=== PATIENT | male | born 1975 | race Caucasian/White ===

== ENCOUNTER 2016-12-28 08:29 | Emergency (ER) | payer OTHER ==
[~2016-12-28] VITALS: Ht 165.1 cm; Wt 79.5 kg
[2016-12-28 08:32] VITALS: Ht 165.1 cm; Wt 79.5 kg
[2016-12-28] MEDS ORDERED: FAMOTIDINE 20 MG TAB PO STA (09:04)
[2016-12-28] MEDS ORDERED: LIDOCAINE/MYLANTA 40 ML BTL PO STA (09:04)
[2016-12-28 09:25] LABS: URINE BLOOD (Dip) POC Trace-intact (NEGATIVE)
--- NOTE | 2016-12-28 09:31 | RADRPT ---
PROCEDURE: XR Chest. CLINICAL INDICATION: Shortness of breath. TECHNIQUE: A single portable view of the chest was obtained. COMPARISON: None FINDINGS: The cardiomediastinal silhouette is within normal limits. The lungs and pleural spaces are clear. The soft tissues and osseous structures are unremarkable. IMPRESSION: No acute cardiopulmonary disease. RPTAT: HPNM Physician Tor Date Time Electronically viewed and signed by David Yang Physician on 12/28/2016 09:31 /
[2016-12-28 09:46] LABS: ADD SCAN DIFF NO
[2016-12-28 09:49] LABS: BASOPHILS % 0.3 % (0.0-2.0); EOSINOPHILS # 0.1 10^3/ul (0.0-0.5); EOSINOPHILS % 1.6 % (0.0-7.0); HEMATOCRIT 44.5 % (42.0-52.0); HEMOGLOBIN 14.7 g/dl (14.0-18.0); MEAN CORPUSCULAR HEMOGLOBIN 29.9 pg (29.0-33.0); MEAN CORPUSCULAR VOLUME 90.4 fl (82.0-101.0); MEAN PLATELET VOLUME 9.2 fl (7.4-10.4); MONOCYTE # 0.4 10^3/ul (0.3-0.9); MONOCYTES % 11.9 % (0.0-11.0); NEUTROPHIL # 2.2 10^3/ul (1.6-7.5); NEUTROPHILS % 60.2 % (39.0-77.0); PLATELET COUNT 206 10^3/UL (140-415); RED BLOOD COUNT 4.92 10^6/ul (4.70-6.10); RED CELL DISTRIBUTION WIDTH 12.8 % (11.5-14.5); WHITE BLOOD COUNT 3.7 10^3/ul (4.8-10.8)
[2016-12-28 09:56] LABS: POTASSIUM 4.1 mmol/L (3.5-5.1)
[2016-12-28 09:58] LABS: CREATININE 0.99 mg/dl (0.61-1.24)
[2016-12-28 09:59] LABS: ALBUMIN/GLOBULIN RATIO 1.31; BILIRUBIN,INDIRECT 0.6 mg/dl (0-1.1); BILIRUBIN,TOTAL 0.6 mg/dl (0.2-1.3); CALCIUM 9.6 mg/dl (8.4-10.2); TOTAL PROTEIN 8.8 g/dl (6.1-8.1)
--- NOTE | 2016-12-28 10:00 | ERD ---
ER Documentation Chief Complaint Date/Time DATE: 12/28/16 TIME: 09:55 Chief Complaint constant upper quadrant pain x4 days, aggravates when lying down,denies n/v HPI This is a 41-year-old male presenting to emergency department for abdominal pain 4 days. Patient states his pain is constant, pressure to periumbilical region. Patient's pain is aggravated while lying down. No nausea, vomiting or diarrhea. Last bowel movement was yesterday. Denies constipation. No chest pain, palpitations, shortness of breath or difficulty breathing. No fevers or chills. Patient did not take any medications at home. Patient recently changed his diet to liquid only diet "detox" for the past week. ROS All systems reviewed and are negative except as per history of present illness. Medications Home Meds Active Scripts Famotidine* (Pepcid*) 20 Mg Tablet, 20 MG PO BID for 4 Days, TAB Prov:ALONZO MOORE NP 12/28/16 Polyethylene Glycol* (Miralax*) 17 Gm Powd.pack, 17 GM PO DAILY, #7 Prov:ALONZO MOORE NP 12/28/16 Docusate Sodium* (Colace*) 100 Mg Capsule, 100 MG PO DAILY, #10 CAP Prov:ALONZO MOORE NP 12/28/16 PMhx/Soc Medical and Surgical Hx: pt denies Medical Hx History of Surgery: Yes (circumcision) Anesthesia Reaction: No Hx Neurological Disorder: No Hx Respiratory Disorders: No Hx Cardiac Disorders: No Hx Psychiatric Problems: No Hx Miscellaneous Medical Probl: No Hx Alcohol Use: No Hx Substance Use: No Hx Tobacco Use: No Smoking Status: Never smoker Physical Exam Vitals Vital Signs Date Time Temp Pulse Resp B/P Pulse Ox O2 Delivery O2 Flow Rate FiO2 12/28/16 12:43 98.4 74 19 119/64 100 Room Air 12/28/16 08:32 98.2 73 19 128/85 95 Physical Exam Const: No acute distress, alert, oriented to person place and time. Head: Atraumatic Eyes: Normal Conjunctiva ENT: Normal External Ears, Nose and Mouth. Neck: Full range of motion..~ No meningismus. Resp: Clear to auscultation bilaterally. No wheezing, rhonchi or crackles. Cardio: Regular rate and rhythm, no murmurs Abd: Soft, no suprapubic tenderness. , non distended. Normal bowel sounds, Skin: No petechiae or rashes Back: No midline or flank tenderness, No CVA tenderness. Ext: No cyanosis, or edema Neur: Awake and alert Psych: Normal Mood and Affect Result Diagram: 12/28/1691612/28/1617 Results 24 hrs Laboratory Tests Test 12/28/16 09:17 12/28/16 09:25 White Blood Count 3.710^3/ul Red Blood Count 4.9210^6/ul Hemoglobin 14.7g/dl Hematocrit 44.5% Mean Corpuscular Volume 90.4fl Mean Corpuscular Hemoglobin 29.9pg Mean Corpuscular Hemoglobin Concent 33.0g/dl Red Cell Distribution Width 12.8% Platelet Count 96192^3/UL Mean Platelet Volume 9.2fl Neutrophils % 60.2% Lymphocytes % 26.0% Monocytes % 11.9% Eosinophils % 1.6% Basophils % 0.3% Nucleated Red Blood Cells % 0.0/100WBC Neutrophils # 2.210^3/ul Lymphocytes # 1.010^3/ul Monocytes # 0.410^3/ul Eosinophils # 0.110^3/ul Basophils # 0.010^3/ul Nucleated Red Blood Cells # 0.010^3/ul Sodium Level 143mmol/L Potassium Level 4.1mmol/L Chloride Level 101mmol/L Carbon Dioxide Level 27mmol/L Anion Gap 19 Blood Urea Nitrogen 15mg/dl Creatinine 0.99mg/dl Glucose Level 98mg/dl Calcium Level 9.6mg/dl Total Bilirubin 0.6mg/dl Direct Bilirubin 0.00mg/dl Indirect Bilirubin 0.6mg/dl Aspartate Amino Transf (AST/SGOT) 47IU/L Alanine Aminotransferase (ALT/SGPT) 64IU/L Alkaline Phosphatase 86IU/L Total Protein 8.8g/dl Albumin 5.0g/dl Globulin 3.80g/dl Albumin/Globulin Ratio 1.31 Lipase 79U/L Bedside Urine pH (LAB) 5.5 Bedside Urine Protein (LAB) Negative Bedside Urine Glucose (UA) Negative Bedside Urine Ketones (LAB) Negative Bedside Urine Blood Trace-intact Bedside Urine Nitrite (LAB) Negative Bedside Urine Leukocyte Esterase (L Negative Current Medications Medications (Trade) Dose Ordered Sig/Beba Route PRN Reason Start Time Stop Time Status Last Admin Dose Admin Famotidine (Pepcid) 20 mg ONCE STAT PO 12/28/16 09:04 12/28/16 09:07 DC 12/28/16 09:28 Miscellaneous Medication (Gi Cocktail (2)) 40 ml ONCE STAT PO 12/28/16 09:04 12/28/16 09:07 DC 12/28/16 09:28 Procedures/MDM ED COURSE: The patient was stable throughout ED course. I kept the patient and/or family informed of laboratory and diagnostic imaging results throughout the ED course. Laboratory CBC no significant anemia or infection CMP no significant electrolyte imbalance. AST slightly elevated at 47. Lipase 79 Urine dip trace blood Imaging Chest x-ray Patient: MERON RIVERA : 1975 Age: 41 Sex: M MR #: [id number] DOS: 12/28/16903 Ordering MD: ALONZO MOORE NP Location: [facility] Room/Bed: PROCEDURE: XR Chest. CLINICAL INDICATION: Shortness of breath. TECHNIQUE: A single portable view of the chest was obtained. COMPARISON: None FINDINGS: The cardiomediastinal silhouette is within normal limits. The lungs and pleural spaces are clear. The soft tissues and osseous structures are unremarkable. IMPRESSION: No acute cardiopulmonary disease. Gallbladder ultrasound Patient: MERON RIVERA : 1975 Age: 41 Sex: M MR #: [id number] DOS: 12/28/16903 Ordering MD: ALONZO MOORE NP Location: [facility] Room/Bed: PROCEDURE: Right upper quadrant abdominal ultrasound. CLINICAL INDICATION: Abdominal pain TECHNIQUE: Jorgensen scale and color doppler ultrasound images of the right upper quadrant. COMPARISON: None FINDINGS: Pancreas: Partially visualized pancreas appears within normal limits. Liver: Morphology: Normal in size and contour. Echogenicity: Normal. Focal lesions: None. Main portal vein: Patent with hepatopetal flow. Biliary System: Normal appearing gallbladder wall. No gallstones seen. No intrahepatic biliary dilatation. Common bile duct measures 4.1 mm in maximal dimension. Kidneys: Right 9.8 cm in length. Right renal cortical thickness is preserved. Normal echogenicity. No hydronephrosis. No renal calculi. No focal lesions. No free fluid identified. IMPRESSION: Normal gallbladder without gallstones. Normal examination. Patient: MERON RIVERA : 1975 Age: 41 Sex: M MR #: [id number] [facility] #: [id number] DOS: 12/28/16 1041 Ordering MD: ALONZO MOORE NP [facility] Room/Bed: AMENDMENT: 12/28/2016 12:16:02 PM Cody Alvarenga M.d PROCEDURE: CT abdomen and pelvis without contrast. CLINICAL INDICATION: Abdominal pain. TECHNIQUE: CT scan of the abdomen and pelvis without contrast was performed on a multi-slice CT scanner . Sagittal and coronal reformatted images were obtained from the axial source images. DLP 744.3 mGycm. CTDIvol 13.2 mGy COMPARISON: None FINDINGS: Trace scarring is seen in the lung bases. There is a 5 ml right lower lobe pulmonary nodule on series 3, image 38. There is a 3 mm nodule in the left lower lobe on image 5. Coronary artery calcifications are seen in the heart. There is limited evaluation of the solid viscera from the lack of IV contrast. The kidneys are symmetric bilaterally with no evidence of renal or ureteral calculi. There is no hydronephrosis or perinephric stranding. There is normal density of the liver with no gross focal lesion or biliary ductal dilatation. The gallbladder is unremarkable without inflammation. The spleen is unremarkable without mass. The adrenal glands are within normal limits without mass. The pancreas is unremarkable without focal lesion or surrounding inflammatory changes. There is no bowel obstruction or focal bowel inflammation. The appendix is unremarkable. There is a moderately fecal filled colon. There is no free air or free fluid. There are no enlarged lymph nodes. There is aortic atherosclerosis without aneurysmal dilatation. There is no acute osseous abnormality. The prostate is grossly unremarkable. There is a small fat containing right inguinal hernia. IMPRESSION: No evidence of renal or ureteral calculi or hydronephrosis. No evidence of bowel obstruction or inflammation. There is a fecal filled colon. Atherosclerotic disease is present. Small bilateral pulmonary nodules are seen which can be further assessed with dedicated CT of the thorax on a non emergent basis. EKG: As interpreted by myself and Dr. Jiménez Rate/Rhythm: Normal sinus rhythm with heart rate 76 bpm QRS, ST, T-waves: No changes consistent w/ acute ischemia Impression: No evidence of ischemia or arrhythmia MDM: 41-year-old male presents emergency department for constant, pressure to periumbilical region. Patient rates pain 6-7/10 while lying down. Patient states lying down aggravates his pain. Patient given Pepcid and GI cocktail while in the ED. Chest x-ray reviewed by radiologist as unremarkable. Gallbladder ultrasound reviewed by radiologist as normal gallbladder without gallstones. Normal examination. CT abdomen and pelvis reviewed by radiologist as No evidence of renal or ureteral calculi or hydronephrosis. No evidence of bowel obstruction or inflammation. There is a fecal filled colon. Atherosclerotic disease is present. Small bilateral pulmonary nodules are seen which can be further assessed with dedicated CT of the thorax on a non emergent basis. Labs are overall unremarkable. Urine dip is negative for infection with trace blood. Patient given Pepcid with GI cocktail. According to radiologist, there is a fecal filled colon on CT abdomen and pelvis examination. Patient states he had a last bowel movement yesterday morning however changed his diet to liquid only for the past week. Vital signs remained stable. EKG reviewed by myself and Dr. Jiménez as NSR with HR 76bpm. Upon reassessment of patient, patient appears well and smiling during reassessment. Low suspicion for appendicitis, diverticulitis, pancreatitis, cholecystitis, aortic aneurysm, pneumonia, pleural effusion, pneumothorax, acute AL and UTI or pyelonephritis. Differential diagnosis includes but not limited to constipation, GERD, gastritis , gastroparesis, peptic ulcer disease, functional dyspepsia and abdominal pain not otherwise specified. Patient is appropriate for outpatient management and we given prescription for Colace, MiraLAX and Pepcid. Instructed patient to follow-up with primary care provider in the next 24-48 hours for reassessment and additional management. Return to ED for any high fever, chest pain, difficulty breathing, shortness breath, wheezing, vomiting, diarrhea, abdominal pain or any new or worsening symptoms. Patient verbalizes understanding. All questions answered at discharge. Departure Diagnosis: Primary Impression: Abdominal pain Abdominal location: periumbilical Qualified Code: R10.33 - Periumbilical abdominal pain Condition: Stable ALONZO MOORE NP Dec 28, 2016 10:00
--- NOTE | 2016-12-28 10:11 | RADRPT ---
PROCEDURE: Right upper quadrant abdominal ultrasound. CLINICAL INDICATION: Abdominal pain TECHNIQUE: Jorgensen scale and color doppler ultrasound images of the right upper quadrant. COMPARISON: None FINDINGS: Pancreas: Partially visualized pancreas appears within normal limits. Liver: Morphology: Normal in size and contour. Echogenicity: Normal. Focal lesions: None. Main portal vein: Patent with hepatopetal flow. Biliary System: Normal appearing gallbladder wall. No gallstones seen. No intrahepatic biliary dilatation. Common bile duct measures 4.1 mm in maximal dimension. Kidneys: Right 9.8 cm in length. Right renal cortical thickness is preserved. Normal echogenicity. No hydronephrosis. No renal calculi. No focal lesions. No free fluid identified. IMPRESSION: Normal gallbladder without gallstones. Normal examination. RPTAT: AADD .Rigoberto Mayen MD, Date Time Electronically viewed and signed by .Rigoberto Mayen MD, MD on 12/28/2016 10:10 .B/
--- NOTE | 2016-12-28 12:13 | RADRPT ---
AMENDMENT: 12/28/2016 12:16:02 PM Cody Alvarenga M.d PROCEDURE: CT abdomen and pelvis without contrast. CLINICAL INDICATION: Abdominal pain. TECHNIQUE: CT scan of the abdomen and pelvis without contrast was performed on a multi-slice CT [facility] . Sagittal and coronal reformatted images were obtained from the axial source images. DLP 744.3 mGycm. CTDIvol 13.2 mGy COMPARISON: None FINDINGS: Trace scarring is seen in the lung bases. There is a 5 ml right lower lobe pulmonary nodule on seri es 3, image 38. There is a 3 mm nodule in the left lower lobe on image 5. Coronary artery calcific ations are seen in the heart. There is limited evaluation of the solid viscera from the lack of IV contrast. The kidneys are symmetric bilaterally with no evidence of renal or ureteral calculi. There is no hy dronephrosis or perinephric stranding. There is normal density of the liver with no gross focal lesion or biliary ductal dilatation. The gallbladder is unremarkable without inflammation. The spleen is unremarkable without mass. The adrenal glands are within normal limits without mass. The pancreas is unremarkable without focal lesion or surrounding inflammatory changes. There is no bowel obstruction or focal bowel inflammation. The appendix is unremarkable. There is a moderately fecal filled colon. There is no free air or free fluid. There are no enlarged lymph nod es. There is aortic atherosclerosis without aneurysmal dilatation. There is no acute osseous abnormali ty. The prostate is grossly unremarkable. There is a small fat containing right inguinal hernia. IMPRESSION: No evidence of renal or ureteral calculi or hydronephrosis. No evidence of bowel obstruction or inflammation. There is a fecal filled colon. Atherosclerotic disease is present. Small bilateral pulmonary nodules are seen which can be further assessed with dedicated CT of the th orax on a non emergent basis. RPTAT: AA .Cody Alvarenga MD, MD Date Time Electronically viewed and signed by .Cody Alvarenga MD, MD on 12/28/2016 12:16 .Andressa/
[2016-12-28] MEDS ORDERED: FAMO-18 PO (12:37)
[2016-12-28] MEDS ORDERED: DOCU-144 PO (12:37)
[2016-12-28] MEDS ORDERED: POLY17PO6 PO (12:37)
[2016-12-28 12:43] VITALS: BP 119/64; PULSE 74; RESP 19; TEMP 98.4
== END 2016-12-28 12:44 | disposition home or self-care (01) ==
LOC: FTE 08:29
DX: R10.33 Periumbilical pain (principal)
CPT/HCPCS: 36415; 71010; 74176; 76705; 80053; 81003; 83690; 85025; 93005